=== PATIENT | male | born 1995 | race Caucasian/White ===

== ENCOUNTER 2017-03-25 03:40 | Emergency (ER) | payer OTHER ==
[~2017-03-25] VITALS: Ht 163.8 cm; Wt 54.5 kg
[2017-03-25] MEDS ORDERED: ONDANSETRON HCL 4 MG/2 ML VIAL IM ONE (04:00)
[2017-03-25] MEDS ORDERED: MORPHINE SULFATE 4 MG/ML SYRINGE IM ONE (04:00)
[2017-03-25 05:55] VITALS: BP 140/98
== END 2017-03-25 06:24 | disposition home or self-care (01) ==
LOC: EMS 03:41
DX: M25.562 Pain in left knee (principal); F12.90 Cannabis use, unspecified, uncomplicated
CPT/HCPCS: 29505; 73562; 96372; 99284; J2270; J2405